=== PATIENT | female | born 1945 | race Caucasian/White ===

== ENCOUNTER 2017-10-17 13:35 | Inpatient (IN) | payer MEDICARE ==
[2017-10-17 14:40] LABS: #Basophils 0.1 thou/uL (0.0-0.2); #Eosinphils 0.1 thou/uL (0.0-0.7); #Lymphocytes 1.1 thou/uL (1.20-3.40); #Monocytes 0.8 thou/uL (0.11-0.59); %Basophils 0.8 % (0.0-1.0); %Eosinophils 0.6 % (0.0-10.0); %Lymphocytes 11.2 % (21.0-51.0); %Monocytes 7.7 % (0.0-10.0); %Neutrophils 79.7 % (42.0-75.0); Hemoglobin 13.7 g/dL (12.0-16.0); Mean Corpuscular HGB CONC 32.3 g/dL (32.0-36.0); Mean Corpuscular Hemoglobin 27.7 pg (27.0-31.0); Mean Corpuscular Volume 85.8 fl (81.0-99.0); Platelet Count 327 thou/uL (130-400); RBC Distribution Width 13.6 % (11.5-14.5); Red Blood Cell (RBC) Count 4.94 mill/uL (4.20-5.40)
[2017-10-17 15:02] LABS: ALT (SGPT) 14 U/L (8-55); AST (SGOT) 26 U/L (5-34); Albumin 4.3 g/dL (3.4-4.8); Alkaline Phosphatase 64 U/L (40-150); Anion Gap 17 mmol/L (10-20); BUN (Urea Nitrogen) 26 mg/dL (9.8-20.1); Bilirubin, Total 0.8 mg/dL (0.2-1.2); CK (CPK) 199 U/L (29-168); Calc. Creatinine Clearance 0 mL/min (70-130); Calcium 9.9 mg/dL (7.8-10.44); Carbon Dioxide 22 mmol/L (23-31); Chloride 100 mmol/L (98-107); Estimated GFR-MDRD 62; Globulin 3.2 g/dL (2.4-3.5); Glucose 95 mg/dL (83-110); Potassium 4.2 mmol/L (3.5-5.1); Protein, Total 7.5 g/dL (6.0-8.3); Sodium 135 mmol/L (136-145)
[2017-10-17 15:05] LABS: CKMB 3.5 ng/mL (0-6.6); Troponin I Less than 0.010 ng/mL (< 0.028)
--- NOTE | 2017-10-17 15:47 | CT ---
CT BRAIN WITHOUT CONTRAST 10/17/17 COMPARISON: 10/15/17 HISTORY: Head trauma. TECHNIQUE: Multiple contiguous axial images are obtained in a CT of the brain without contrast. FINDINGS: There is scattered hypodensities in the subcortical and periventricular white matter likely secondary to small vessel ischemic disease. There is stable prominence of the lateral ventricles which may be secondary to atrophy. Mild hydrocephalus is also a possibility. There is no evidence of intracranial hemorrhage or extra-axial fluid collection. The calvarium and overlying soft tissues are unremarkable. The visualized paranasal sinuses and masto id air cells are well aerated. IMPRESSION: 1. No evidence of acute intracranial abnormality. 2. Small vessel ischemic disease. 3. Prominence of the lateral ventricles may be secondary to cerebral atrophy versus mild hydroce phalus. POS: [facility]
--- NOTE | 2017-10-17 15:50 | RAD ---
TWO VIEWS OF THE LEFT TIBIA/FIBULA: COMPARISON: None. HISTORY: Left leg numbness. The patient fell on 10/15 and went to the ER where she was diagnosed with a left d istal tibia fracture. FINDINGS: Two views of the left tibia/fibula show no evidence of acute fracture or dislocation. No degenerativ e changes are seen. No focal soft tissue swelling is present. IMPRESSION: Unremarkable exam. POS: [facility]
--- NOTE | 2017-10-17 15:51 | CT ---
CT CERVICAL SPINE WITHOUT CONTRAST 10/17/17 COMPARISON: None. HISTORY: Trauma with neck pain. TECHNIQUE: Multiple contiguous axial images were obtained in a CT of the cervical spine without contrast. Sagitt al and coronal reformats were performed. FINDINGS: There are moderate degenerative changes of the cervical spine. The vertebral bodies demonstrate shae l height without acute fracture or subluxation. No prevertebral soft tissue swelling is seen. The posterior facets are well aligned. Normal alignment of the skull base with the cervical spine is seen. There is scarring in the right lung apex. Calcifications are seen in the carotid arteries. IMPRESSION: No evidence of acute osseous abnormality of the cervical spine. POS: [facility]
--- NOTE | 2017-10-17 15:56 | CT ---
CT OF THE LUMBAR SPINE WITHOUT CONTRAST 10/17/17 COMPARISON: None. HISTORY: Trauma with low back pain. TECHNIQUE: Multiple contiguous axial images were obtained in a CT of the lumbar spine without contrast. Sagittal and coronal reformats were performed. FINDINGS: There is severe degenerative changes in the lumbar spine. There is scoliotic curvature of the spine. Bulky osteophytes are seen along the right lateral aspect of the vertebral bodies in the upper lumbar spine and along the left aspect of the vertebral bodies in the lower lumbar spine. This is along the concave aspect of the scoliotic curvature. The vertebral bodies demonstrate normal height without ac [facility] height loss or subluxation. Atherosclerotic calcifications are seen in the aorta. A cyst is seen in the left kidney. The other pr evertebral and paraspinal soft tissues are unremarkable. There is no bony narrowing of the central ca nal. There is moderate to severe right neural foraminal stenosis in the upper lumbar spine at L1-2 an d L2-3 and moderate left neural foraminal stenosis at L3-4, L4-5, and L5-S1. IMPRESSION: Degenerative changes of the lumbar spine as above without acute osseous abnormality. POS: [facility]
[2017-10-17] MEDS ORDERED: ISOVUE-370 76%-LOCM 1 ML ONE (16:56)
--- NOTE | 2017-10-17 17:03 | CT ---
CT ANGIO ABDOMEN AND PELVIS AND BILATERAL LOWER EXTREMITIES WITH CONTRAST: 10/17/17 Multiple axial tomograms obtained through the abdomen and pelvis and lower extremities with arterial phase enhancement with multiplanar reconstruction and 3D postprocessing with angio protocol. HISTORY: Decreased peripheral pulses on the left. Left leg is cold to touch with numbness and pain. FINDINGS: The abdominal aorta shows mild atherosclerotic change. No aneurysmal dilatation. No dissection. No ev idence of stenosis identified at the origin of the major aortic branches including celiac, superior m esenteric, and renal arteries. Aortic bifurcation is patent. The abdominal aorta is mildly tortuous. Common iliac arteries are unrem arkable. LEFT LOWER EXTREMITY: The internal and external iliacs are unremarkable. Left common femoral is unremarkable. Femoral profunda is unremarkable. Left superficial femoral is unremarkable. Left popliteal is patent proximally; however, the distal popliteal is not opacified. There is no opac ified vessels below the knee on the left indicating occlusion of the distal left popliteal artery. RIGHT LOWER EXTREMITY: The right internal and external iliacs are unremarkable. Right common femoral and profunda femoral are unremarkable. Right superficial femoral is unremarkable. Right popliteal unremarkable. The popliteal trifurcates below the knee and three vessels are seen to the distal calf. Vessels are not seen at the ankle. However, this may be due to CT images overrunning the bolus. SOFT TISSUES: There is a fixed diaphragmatic hernia. Liver, spleen and pancreas are unremarkable. Kidneys unremarka ble. There is a cyst in the posterior left renal cortex which measures up to 3.4 cm. Bowel loops appe ar unremarkable. IMPRESSION: No contrast is seen distal to the left popliteal artery. Findings would indicate occlusion of the dis babak left popliteal artery. POS: [facility]
[2017-10-17] MEDS ORDERED: Heparin 5,000 UNITS/ML VIAL ONE (17:13)
[2017-10-17 17:30] LABS: PTT 25.6 SEC (22.9-36.1); Prothrombin Time 13.6 SEC (12.0-14.7)
[2017-10-17] MEDS ORDERED: traMADol HCl 50 MG TAB PO PRN (18:18)
[2017-10-17] MEDS ORDERED: Heparin 25,000 units/D5W 500 ML IVPB SCH (21:13)
[2017-10-17] MEDS ORDERED: Ondansetron ODT 4 MG TAB PO PRN (21:13)
[2017-10-17] MEDS ORDERED: hydrALAZINE 20 MG/ML VIAL SLOW IVP PRN (21:13)
[2017-10-17] MEDS ORDERED: Milk Of Magnesia 30 ML UDCUP PO PRN (21:13)
[2017-10-17] MEDS ORDERED: Heparin 10,000 UNITS/ 10 ML VIAL SLOW IVP SCH (21:13)
[2017-10-17] MEDS ORDERED: Mag-Al 1200 mg/1200 mg/30 ML UDCUP PO PRN (21:13)
[2017-10-17] MEDS ORDERED: Aspirin 81 mg Enteric Coated Tablet PO SCH (21:30)
[2017-10-17] MEDS ORDERED: Sodium Chloride 0.9% 1,000 ML IV SCH (21:30)
[2017-10-17 21:34] LABS: Hemoglobin 12.8 g/dL (12.0-16.0); Platelet Count 301 thou/uL (130-400)
--- NOTE | 2017-10-17 21:34 | HP ---
HISTORY OF PRESENT ILLNESS: This is a 72-year-old lady with a history of hypertension. She fell 2 d ays ago, was seen in the [place] [facility]. At that time, she reported pain in her ankle a nd foot and was unable to bear weight. She was felt perhaps have a fracture at the ankle level. She also was noted to have an anterior maxillary wall fracture. She was sent home. She developed a dec reased sensation in her left lower extremity below the knee, particularly at about the ankle and foot level. She was then unable to move her toes. This all occurred within a few hours of arriving back home. She was transported back up here today where workup included lumbar spine CT brain scan, tibi a, fibula x-ray. She ultimately underwent an aortogram with CTA demonstrating an occlusion of her le ft popliteal artery with no flow seen distally. There was no significant edema in that leg. PAST MEDICAL HISTORY: Includes hypertension. PAST SURGICAL HISTORY: Hysterectomy. SOCIAL HISTORY: Nonsmoker, , remains active, taking care of some cats. She does not walk or exercise. PHYSICAL EXAMINATION: GENERAL: She is an alert, cooperative lady in no distress with a bruise under her left eye. Pupils are equal, round, reactive to light and motion. NECK: She has no carotid bruits. LUNGS: Clear to auscultation. CARDIAC: Exam reveals a regular rhythm with no murmurs. ABDOMEN: Soft and nontender. EXTREMITIES: She has palpable femoral, popliteal, and posterior tibial pulses bilaterally as well as weak dorsalis pedis pulses bilaterally. She has excellent Doppler signals in all 4 of her pedal ves sels. Her left foot is pink, but she does have a foot drop. Her anterior compartment is soft and no ntender. She does have some slight ecchymosis along the tibia and the anterior compartment, but once again, it is nontender and soft. She has a good Doppler signal in her left popliteal artery. At this time, it appears that the patient may have had an embolic event 2 days ago with sudden loss o f function in her left lower extremity leading to a fall. X-rays done at that time, possible ankle f racture and maxillary sinus fracture. Subsequently, the patient has noticed an occasional nosebleed. The patient has had marked improvement in her circulation to her foot and evidently has had a palpa ble pulse today while in the emergency room the entire time. At this point, I do not see any benefit to taking her to surgery to remove the thrombus as her circulation is quite good. Her foot drop is permanent due to the long duration of ischemia prior to improvement in her circulation. I have given her 5000 units of heparin in the emergency room. Her sensation is intact throughout at this time. PLAN: IV heparin, cardiac echo. I will ask Orthopedics to see her in regards to her possible ankle fracture on x-rays done in [place]. Likely these will need to be repeated. I will also monitor her for atrial fibrillation.
[2017-10-17] MEDS: Heparin 25,000 units/D5W 500 ML IV SCH (22:20)
[2017-10-17] MEDS: Heparin 10,000 UNITS/ 10 ML VIAL SLOW IVP SCH (22:20)
[2017-10-17] MEDS: Famotidine 20 MG TAB PO SCH (22:27)
[2017-10-17] MEDS: Docusate 100 MG CAP PO SCH ×2 (22:58→23:20)
[2017-10-17 23:02] VITALS: BMI 24.5
[2017-10-18 05:27] LABS: #Basophils 0.1 thou/uL (0.0-0.2); #Eosinphils 0.1 thou/uL (0.0-0.7); #Lymphocytes 1.6 thou/uL (1.20-3.40); #Monocytes 0.7 thou/uL (0.11-0.59); #Neutrophils 5.9 thou/uL (1.40-6.50); %Basophils 0.8 % (0.0-1.0); %Eosinophils 1.7 % (0.0-10.0); %Monocytes 8.3 % (0.0-10.0); %Neutrophils 70.2 % (42.0-75.0); Hemoglobin 12.1 g/dL (12.0-16.0); Mean Corpuscular Hemoglobin 27.4 pg (27.0-31.0); Mean Corpuscular Volume 85.7 fl (81.0-99.0); Mean Platelet Volume 7.5 fL (7.4-10.4); Platelet Count 297 thou/uL (130-400); RBC Distribution Width 13.6 % (11.5-14.5); Red Blood Cell (RBC) Count 4.43 mill/uL (4.20-5.40); White Blood Cell (WBC) Count 8.4 thou/uL (4.8-10.8)
[2017-10-18 05:37] LABS: Anion Gap 15 mmol/L (10-20); BUN (Urea Nitrogen) 27 mg/dL (9.8-20.1); Calc. Creatinine Clearance 59 mL/min (70-130); Calcium 9.6 mg/dL (7.8-10.44); Carbon Dioxide 22 mmol/L (23-31); Chloride 103 mmol/L (98-107); Estimated GFR-MDRD 67; Glucose 89 mg/dL (83-110); Sodium 137 mmol/L (136-145)
[2017-10-18] MEDS ORDERED: Clopidogrel Bisulfate 75 MG TAB ONE (07:31)
[2017-10-18] MEDS: Docusate 100 MG CAP PO SCH ×2 (08:22→21:11)
[2017-10-18] MEDS: Famotidine 20 MG TAB PO SCH ×2 (08:22→21:11)
[2017-10-18] MEDS ORDERED: Lisinopril/Hydrochlorothiazide 10 mg/12.5 mg Tablet PO SCH (09:00)
[2017-10-18] MEDS ORDERED: FLU VACC TS2017-18 (>65YR) 0.5 ML SYRINGE IM ONE (09:00)
[2017-10-18] MEDS ORDERED: Prevnar 13-Val Conj/PF 0.5 ML SYRINGE IM ONE (09:00)
--- NOTE | 2017-10-18 09:41 | CON ---
DATE OF CONSULTATION: 10/18/2017 HISTORY OF PRESENT ILLNESS: We were asked to see patient by the Emergency Room and Dr. Cavazos. The sukumar salguero was seen in [place] for a fall on the and told she had an ankle fracture and a facia l fracture. Her history is that her both feet became and had been on and off numb and tingly and for the past week or so has had this unexplained left foot drop. It sounds like patient was put in a sp lint at [place] and sent home. She tried to walk on this splint and fell again. She was re-see n in the ER and sent to our facility for further care. Dr. Cavazos is evaluating her for vascular issu es and was seeing her for her foot. The patient states prior 2 weeks ago, she was in good health, in no acute distress, taking care of her cats and then her foot started getting weak. She denies any b ack pain, any history of mental status changes that she recalls. No family is in the room with her a t this time. Currently, she has some decreased sensation in left lower extremity with an obvious luz t drop, just viewing the foot. PAST MEDICAL HISTORY: Positive for hypertension. PAST SURGICAL HISTORY: Hysterectomy. SOCIAL HISTORY: , nonsmoker. CURRENT MEDICATIONS: Lisinopril. ALLERGIES: Denies any. CURRENT REVIEW OF SYSTEMS: I think she is complaining of her left lower extremity and inability to w alk. Otherwise, rest of review of systems is negative. PHYSICAL EXAMINATION: GENERAL: Well-nourished female, resting in bed, in no acute distress. Speech clear. Affect pleasan t. Answers questions appropriately, she is alert and oriented x3. HEENT: There is a bruise to her left inferior orbit, it is a little tender, but eyes are tracking we ll. Face is symmetric. NECK: Supple. EXTREMITES: Upper extremity is moving well. She does have some bruising seen on both upper extremit ies, but she has equal size, shape, symmetry, normal bulk and tone in lower extremities. Right lower extremity, normal exam. No brisk reflexes found in upper or lower extremities. No clonus seen to t he feet. Palpation of DP, PT pulses, they are equal. Both feet have good warmth. Movement of the r ight lower extremity is absolutely normal. Left lower extremity, the patient is unable to dorsiflex, move her EHL and she is not able to extend her knee, but I can lock her leg in place and she has got good quad strength. Gait not tested. ASSESSMENT: Left foot drop, x-rays from [place] for concerns of her fracture, we did look at ti b/fib films and did not see any fractures on visualization. We will get a new 3 view, which I have e xplained to the patient and reviewed the images further. I am also going to order a walking boot and physical therapy for patient, this way we can lock her foot in place as she has got good upper leg s trength, but the inferior leg is a little bit weak and hopefully we can get her back to some mobility status. Further workup will be done by Dr. Cavazso. Once x-rays done, we will discuss these results with the patient also. This is Carlin Garvey PA-C dictating for Dr. John Caro.
--- NOTE | 2017-10-18 10:32 | RAD ---
THREE VIEWS OF THE LEFT ANKLE: COMPARISON: 10/15/17. HISTORY: Left foot pain with foot drop. FINDINGS: Three views left foot show no evidence of acute fracture or dislocation. No focal soft tissue swelli ng is seen. No degenerative changes are present. IMPRESSION: No evidence of acute osseous abnormality. POS: [facility]
[2017-10-18] MEDS: Potassium Chloride 20 MEQ TAB PO SCH (17:02)
[2017-10-18] MEDS: Sodium Chloride 0.9% 1,000 ML IV SCH ×2 (18:31→22:48)
[2017-10-18] MEDS: Acetaminophen 325 MG TAB PO PRN (21:10)
[2017-10-19] MEDS: Heparin 25,000 units/D5W 500 ML IV SCH (04:00)
[2017-10-19 05:43] LABS: Anion Gap 13 mmol/L (10-20); BUN (Urea Nitrogen) 16 mg/dL (9.8-20.1); Calc. Creatinine Clearance 66 mL/min (70-130); Calcium 8.8 mg/dL (7.8-10.44); Carbon Dioxide 23 mmol/L (23-31); Chloride 105 mmol/L (98-107); Estimated GFR-MDRD 76; Glucose 90 mg/dL (83-110); Potassium 3.3 mmol/L (3.5-5.1); Sodium 138 mmol/L (136-145)
[2017-10-19] MEDS: Heparin 10,000 UNITS/ 10 ML VIAL SLOW IVP SCH (06:36)
[2017-10-19] MEDS: Docusate 100 MG CAP PO SCH ×2 (09:42→20:27)
[2017-10-19] MEDS: Lisinopril/Hydrochlorothiazide 20 mg/12.5 mg Tablet PO SCH (11:13)
[2017-10-19] MEDS: Potassium Chloride 20 MEQ TAB PO SCH ×2 (11:14→17:44)
[2017-10-19] MEDS: Famotidine 20 MG TAB PO SCH ×2 (11:14→20:27)
[2017-10-19] MEDS: Sodium Chloride 0.9% 1,000 ML IV SCH (11:17)
[2017-10-19] MEDS ORDERED: Diprivan 20 ML ONE (14:04)
[2017-10-19] MEDS ORDERED: Lidocaine 1% PF 5 ML VIAL ONE (15:53)
[2017-10-19] MEDS ORDERED: Propofol 200 MG/20 ML VIAL ONE (15:53)
--- NOTE | 2017-10-19 17:07 | CON ---
CARDIOLOGY CONSULTATION NOTE DATE OF CONSULTATION: 10/19/2017 REASON FOR CONSULTATION: Possible embolic event. HISTORY OF PRESENT ILLNESS: Ms. Flynn is a pleasant 72-year-old white female who comes to the [facility] for foot drop and leg pain. This is after a fall 2 days ago. She was evaluated with a CT morales o and was found to have possible occlusion of the popliteal artery. She was admitted to the hospital with Dr. Cavazos. He is concerned that she may have a shunt in her heart or some source of embolism, so he is requesting a transesophageal echo. PAST MEDICAL HISTORY: Hypertension. PAST SURGICAL HISTORY: Hysterectomy. SOCIAL HISTORY: No alcohol, tobacco or drugs. OUTPATIENT MEDICATIONS: Include lisinopril/HCTZ 20/25 daily. ALLERGIES: No known drug allergies. REVIEW OF SYSTEMS: A 12-point review of systems was done and is all negative unless stated in the hi story of present illness. PHYSICAL EXAMINATION: VITAL SIGNS: Temperature 97.7, pulse 79, respiratory rate 15, satting 96% on room and blood pressure 172/80. GENERAL: Awake, alert and oriented x3, in no distress. HEENT: Normocephalic and atraumatic. NECK: Supple. LUNGS: Clear. CARDIOVASCULAR: S1, S2. No S3, S4. No murmurs, no rubs. ABDOMEN: Soft. Positive bowel sounds. EXTREMITIES: No edema. SKIN: Warm and dry. LABORATORY DATA: Laboratory work was reviewed. CBC, CMP and coags were reviewed. Potassium is low at 3.3. Troponins are negative x1 and albumin of 4.3. IMAGING DATA: EKG is reviewed, sinus rhythm. Telemetry was reviewed, sinus rhythm. Transthoracic echo was reviewed and cannot rule out a thrombus in the left atrial appendage, but poss ibly just a lipomatous hypertrophy of the interatrial septum. ASSESSMENT: Possible lower extremity thromboembolic event. PLAN: Proceed with transesophageal echo to make sure there are no intracardiac shunts versus the basilia rce of an embolic event in her left atrial appendage. We have spoken in length of the risks and bene fits of the procedure, she agrees to proceed. Further recommendations per results of KASIE.
--- NOTE | 2017-10-19 19:44 | ECHO ---
DATE OF PROCEDURE: 10/19/2017 PREPROCEDURE DIAGNOSIS: Thromboembolic event. PROCEDURE PERFORMED: Transesophageal echo. SUMMARY: The Anesthesiology Department provided sedation for the patient, please see their notes for details. After adequate sedation was achieved, the transesophageal probe was inserted into the mouth and into the esophagus without problems. Multiplanar views were then obtained. Left ventricle is normal size with normal wall thickness and systolic function is normal, EF estimate d at 55-60%. Left atrium is normal size. Left atrial appendage is large, with no masses or thrombus, normal veloc ities. Right atrium is normal size. No mass or thrombus. Interatrial septum is intact by color Doppler and by agitated saline study. Right ventricle is normal size and normal RV systolic function. The aortic root is normal size. No aneurysmal dilatations or dissections. Aortic valve is structurally normal, three cusps, no stenosis or regurgitation. Mitral valve structurally normal. There is mild MR, no stenosis. Tricuspid valve structurally normal. There is mild to moderate TR. Pulmonary valve is structurally normal. No significant stenosis or regurgitation. ASSESSMENT AND PLAN: Thoracic ascending aorta shows no evidence of significant atherosclerotic disea se. The distal part of the aortic arch shows no significant atherosclerotic disease. CONCLUSIONS: 1. Normal systolic function with EF of 55-60%. 2. Intact interatrial septum with lipomatous hypertrophy. 3. No thrombus in any of the major cardiac chambers. 4. No significant atherosclerotic disease on the distal aortic arch and the thoracic descending aort a. 5. Mild MR. 6. [id number] TR. POS: [facility]
[2017-10-19] MEDS: Acetaminophen 325 MG TAB PO PRN (20:27)
[2017-10-19 21:24] LABS: Hemoglobin 11.3 g/dL (12.0-16.0); Platelet Count 261 thou/uL (130-400)
[2017-10-20] MEDS: Lisinopril/Hydrochlorothiazide 20 mg/12.5 mg Tablet PO SCH (08:33)
[2017-10-20] MEDS: Famotidine 20 MG TAB PO SCH ×2 (08:33→20:53)
[2017-10-20] MEDS: Docusate 100 MG CAP PO SCH ×2 (08:34→20:52)
[2017-10-20] MEDS: Acetaminophen 325 MG TAB PO PRN (20:54)
[2017-10-21] MEDS: Famotidine 20 MG TAB PO SCH ×2 (08:17→20:14)
[2017-10-21] MEDS: Potassium Chloride 10 MEQ TAB PO SCH (08:17)
[2017-10-21] MEDS: Enoxaparin Sodium 30 MG/0.3 ML SYRINGE SC SCH (08:17)
[2017-10-21] MEDS: Lisinopril/Hydrochlorothiazide 20 mg/12.5 mg Tablet PO SCH (08:17)
[2017-10-21] MEDS: Docusate 100 MG CAP PO SCH ×2 (08:17→20:14)
[2017-10-21] MEDS: Acetaminophen 325 MG TAB PO PRN (12:25)
[2017-10-22] MEDS: Lisinopril/Hydrochlorothiazide 20 mg/12.5 mg Tablet PO SCH (09:25)
[2017-10-22] MEDS: Potassium Chloride 10 MEQ TAB PO SCH (09:26)
[2017-10-22] MEDS: Famotidine 20 MG TAB PO SCH (09:26)
[2017-10-22] MEDS: Docusate 100 MG CAP PO SCH (09:26)
[2017-10-22] MEDS: Enoxaparin Sodium 30 MG/0.3 ML SYRINGE SC SCH (09:32)
[2017-10-22 18:00] VITALS: BP 132/74; TEMP 97
--- NOTE | 2017-10-22 23:02 | DIS ---
HOSPITAL COURSE: This is a 72-year-old lady with early signs of dementia who presented to the emerge ncy room with some left leg numbness, weakness, and foot drop. She was evaluated with lumbar and cer vical spine CTs, a brain scan and aortogram with runoff. The runoff was suspicious for a left poplit eal artery occlusion with no flow distally. On examination, however, she had good pulses in her foot as well as excellent Doppler signal suggesting that the CT scan may have been slow flow and it just did not have time to fill that. In any event, she underwent evaluation for possible embolic source i ncluding a transthoracic and transesophageal echo in continuous monitoring on telemetry for arrhythmi as which did not occur. Her KASIE was normal. The plan was to send her to a halfway unit or r ehab to regain her lower extremity strength. She was seen in consultation by orthopedics for foot dr op and they recommended a boot to assist with ambulation. She made little progress in the hospital a nd ultimately was unable to be transferred to another unit because of insurance issues. She will be discharged home to resume her lisinopril/HCTZ as well as continue an aspirin a day. She may consider outpatient physical therapy or home health.
== END 2017-10-22 18:00 | disposition home or self-care (01) | DRG 301 ==
LOC: ERS 13:35 → 2NO 18:04
PROVIDERS: ADMIT Thoracic Surgery (Cardiothoracic Vascular Surgery); ATTEND Thoracic Surgery (Cardiothoracic Vascular Surgery)
PROC: B24BZZ4 Ultrasonography of Heart with Aorta, Transesophageal (ICD-10-PCS; principal; 2017-10-19)
DX: I70.292 Other atherosclerosis of native arteries of extremities, left leg (principal); F03.90 Unspecified dementia, unspecified severity, without behavioral disturbance, psychotic disturbance, mood disturbance, and anxiety; I08.1 Rheumatic disorders of both mitral and tricuspid valves; I45.10 Unspecified right bundle-branch block; M25.572 Pain in left ankle and joints of left foot; I10 Essential (primary) hypertension; M21.372 Foot drop, left foot; W18.30XA Fall on same level, unspecified, initial encounter
CPT/HCPCS: 36415; 70450; 72125; 72131; 75635; 80048; 80053; 82553; 83605; 84484; 85014; 85018; 85025; 85049; 85610; 85730; 90471; 90670; 90682; 93005; 93306; 93312; 96374; G0008; G0009; G8978-GP-CM; G8979-GP-CK; G8987-GO-CL; G8988-GO-CJ; J1644; J1650; J2001; J2704; Q2036

== ENCOUNTER 2022-05-20 17:22 | Inpatient (IN) | payer MEDICARE ==
[~2022-05-20 17:22] MED LIST: Iopamidol-370 76% 500 ML 1 ML ONE
[2022-05-20 17:59] LABS: Bacteria/HPF 4+ HPF (None Seen); Bilirubin Negative (Negative); Blood, Urine 3+ (Negative); Clarity Extra Turbid (Clear); Glucose, Urine (Dipstick) Normal (Negative); Ketone, Urine Trace mg/dL (Negative); Leukocyte 500 Leu/uL (Negative); Nitrite Negative (Negative); Protein, Urine (Dipstick) 70 mg/dL (Neg-Trace); Specific Gravity, Urine 1.008 (1.002-1.036); Squamous Epithelial 0-3 HPF (0-3); Urobilinogen Normal mg/dL (Less than 2); WBC/HPF Greater than 50 HPF (0-3); pH, Urine 6.5 (5.0-9.0)
[2022-05-20 18:08] LABS: Mean Corpuscular HGB CONC 32.9 g/dL (32.0-36.0); Mean Corpuscular Hemoglobin 28.8 pg (27.0-31.0); Mean Corpuscular Volume 87.5 fL (78.0-98.0); Mean Platelet Volume 6.3 fL (7.4-10.4); Platelet Count 273 thou/uL (130-400); RBC Distribution Width 12.3 % (11.5-14.5); Red Blood Cell (RBC) Count 3.83 mill/uL (4.20-5.40); White Blood Cell (WBC) Count 20.9 thou/uL (4.8-10.8)
[2022-05-20 18:20] LABS: Band 10 % (5-11); Lymphocytes 1 % (21-51); MDiff Complete? YES; Monocytes 4 % (0-10); Neutrophil 84 % (42-75); Platelet Morphology Comment Appears Adequate; Polychromasia SLIGHT = 2-3 cells (100X) (0-2/hpf)
[2022-05-20] MEDS ORDERED: cefTRIAXone\\ROCEPHIN 1 GM VIAL ONE (18:33)
[2022-05-20 18:43] LABS: ALT (SGPT) 18 U/L (8-55); AST (SGOT) 25 U/L (5-34); Albumin 3.3 g/dL (3.4-4.8); Alkaline Phosphatase 89 U/L (40-110); Anion Gap 13 mmol/L (10-20); BUN (Urea Nitrogen) 13 mg/dL (9.8-20.1); Bilirubin, Total 0.8 mg/dL (0.2-1.2); Calc. Creatinine Clearance 0 mL/min (70-130); Calcium 8.2 mg/dL (7.8-10.44); Carbon Dioxide 18 mmol/L (23-31); Chloride 105 mmol/L (98-107); Estimated GFR 71; Globulin 2.8 g/dL (2.4-3.5); Glucose 125 mg/dL (83-110); Protein, Total 6.1 g/dL (5.8-8.1); Sodium 133 mmol/L (136-145)
[2022-05-20] MEDS ORDERED: Acetaminophen 650 MG Suppository ONE (19:18)
[2022-05-20 19:23] LABS: CKMB 1.1 ng/mL (0-6.6)
[2022-05-20] MEDS ORDERED: Vancomycin 1 GM/200 ML BAG ONE (19:40)
[2022-05-20] MEDS ORDERED: Potassium Chloride 40 MEQ in Premix Bag 1 BAG IVPB SCH (19:45)
[2022-05-20 20:00] LABS: Actual Bicarbonate (HCO3a) 12.9 mEq/L (22-28); Analyzer IN Cardio ER; Base Excess (BEa) -8.9 mEq/L (-2.0 to +3.0); Calcium, Ionized (arterial) 1.12 mmol/L (1.12-1.30); Carboxyhemoglobin (COHb) 0.3 gm% (0.0-3.0); Hemoglobin (Hb) 12.3 g/dL (12.0-16.0); O2 Tension (PaO2), arterial 149.6 mmHg (> 70.0); Potassium - ABG Lab 2.89 mmol/L (3.70-5.30); pH, Arterial 7.44 (7.35-7.45)
[2022-05-20 20:02] LABS: CO2 Tension 19.4 mmHg (35.0-45.0)
[2022-05-20 20:03] LABS: Puncture Site RBA
[2022-05-20 20:25] LABS: Magnesium 1.6 mg/dL (1.6-2.6)
[2022-05-20] MEDS ORDERED: Acetaminophen 325 MG Suppository PR SCH (21:00)
[2022-05-20] MEDS: Potassium Chloride 20 MEQ in Premix Bag 1 BAG IVPB SCH (21:10)
[2022-05-20 21:37] LABS: Troponin I 0.942 ng/mL (< 0.028)
[2022-05-20 22:00] LABS: SARS-CoV-2 NAA Rapid Test Not Detected (NotDetected)
[2022-05-20] MEDS ORDERED: Magnesium 2 GM/50 ML(in water) 2 GM in Premix Bag 1 BAG IVPB SCH (22:30)
[2022-05-20] MEDS ORDERED: Piperacillin/Tazobactam 3.375 GM in Sodium Chloride 0.9% 100 ML IVPB SCH (23:59)
[2022-05-21] MEDS: Potassium Chloride 20 MEQ in Premix Bag 1 BAG IVPB SCH (00:18)
[2022-05-21 01:18] LABS: Troponin I 1.347 ng/mL (< 0.028)
[2022-05-21 04:19] LABS: Anion Gap 17 mmol/L (10-20); BUN (Urea Nitrogen) 14 mg/dL (9.8-20.1); Calc. Creatinine Clearance 51 mL/min (70-130); Calcium 8.6 mg/dL (7.8-10.44); Carbon Dioxide 16 mmol/L (23-31); Chloride 106 mmol/L (98-107); Estimated GFR 58; Glucose 147 mg/dL (83-110); Magnesium 2.3 mg/dL (1.6-2.6); Potassium 3.8 mmol/L (3.5-5.1); Sodium 135 mmol/L (136-145)
[2022-05-21 04:49] LABS: Critical Call Chem Troponin I RESULT DECREASING; Troponin I 0.914 ng/mL (< 0.028)
[2022-05-21] MEDS: Piperacillin/Tazobactam 3.375 GM in Sodium Chloride 0.9% 100 ML IVPB SCH ×3 (04:57→20:22)
[2022-05-21 05:03] LABS: Band 9 % (5-11); Hemoglobin 12.1 g/dL (12.0-16.0); Lymphocytes 4 % (21-51); MDiff Complete? YES; Mean Corpuscular HGB CONC 32.6 g/dL (32.0-36.0); Mean Corpuscular Hemoglobin 28.9 pg (27.0-31.0); Mean Corpuscular Volume 88.6 fL (78.0-98.0); Mean Platelet Volume 8.2 fL (7.4-10.4); Monocytes 3 % (0-10); Neutrophil 84 % (42-75); Platelet Count 205 thou/uL (130-400); Platelet Morphology Comment Appears Adequate; RBC Distribution Width 12.6 % (11.5-14.5); RBC Morphology Normal; Red Blood Cell (RBC) Count 4.19 mill/uL (4.20-5.40); White Blood Cell (WBC) Count 26.1 thou/uL (4.8-10.8)
[2022-05-21] MEDS: Enoxaparin Sodium 40 MG/0.4 ML SYRINGE SC SCH (08:48)
[2022-05-21] MEDS ORDERED: Electrolyte Replacement Protocol 1 EACH FS SCH (09:15)
[2022-05-21] MEDS ORDERED: Aspirin 325 MG TAB PO SCH (09:15)
[2022-05-21] MEDS ORDERED: Electrolyte Replacement Protocol FS PRN (09:30)
[2022-05-21 11:10] LABS: Phosphorus 2.6 mg/dL (2.3-4.7)
[2022-05-21] MEDS: Multivitamins, Adult 10 ML in D5 1/2 NS w/20 mEq KCL 1,000 ML IV SCH (11:12)
[2022-05-21] MEDS ORDERED: Nitroglycerin 0.4 MG TAB (25 Tab Bottle) SL PRN (14:13)
[2022-05-21 14:34] VITALS: BMI 27.4
[2022-05-21] MEDS: Acetaminophen 325 MG TAB PO PRN (20:21)
[2022-05-21] MEDS: Senokot S 8.6-50 MG TAB PO SCH (20:21)
[2022-05-21] MEDS: Polyethylene Glycol 3350 17 GM Packet PO SCH (20:22)
[2022-05-22] MEDS: Piperacillin/Tazobactam 3.375 GM in Sodium Chloride 0.9% 100 ML IVPB SCH ×2 (03:36→12:36)
[2022-05-22 04:26] LABS: Phosphorus 2.1 mg/dL (2.3-4.7)
[2022-05-22 04:28] LABS: #Eosinphils 0.2 thou/uL (0.0-0.7); #Lymphocytes 1.1 thou/uL (1.20-3.40); #Monocytes 1.1 thou/uL (0.11-0.59); #Neutrophils 16.8 thou/uL (1.40-6.50); %Basophils 0.1 % (0.0-1.0); %Eosinophils 0.8 % (0.0-10.0); %Lymphocytes 5.9 % (21.0-51.0); %Monocytes 5.8 % (0.0-10.0); %Neutrophils 87.3 % (42.0-75.0); Mean Corpuscular HGB CONC 33.1 g/dL (32.0-36.0); Mean Corpuscular Hemoglobin 29.2 pg (27.0-31.0); Mean Corpuscular Volume 88.1 fL (78.0-98.0); Mean Platelet Volume 6.9 fL (7.4-10.4); Platelet Count 272 thou/uL (130-400); RBC Distribution Width 12.3 % (11.5-14.5); Red Blood Cell (RBC) Count 3.43 mill/uL (4.20-5.40); White Blood Cell (WBC) Count 19.2 thou/uL (4.8-10.8)
[2022-05-22 04:29] LABS: Glucose 112 mg/dL (83-110)
[2022-05-22 04:31] LABS: Anion Gap 10 mmol/L (10-20); BUN (Urea Nitrogen) 15 mg/dL (9.8-20.1); Calc. Creatinine Clearance 55 mL/min (70-130); Calcium 8.6 mg/dL (7.8-10.44); Carbon Dioxide 21 mmol/L (23-31); Chloride 107 mmol/L (98-107); Estimated GFR 63; Potassium 3.3 mmol/L (3.5-5.1); Sodium 135 mmol/L (136-145)
[2022-05-22] MEDS ORDERED: Magnesium 2 GM/50 ML(in water) 2 GM in Premix Bag 1 BAG IVPB SCH (06:00)
[2022-05-22] MEDS: Multivitamins, Adult 10 ML in D5 1/2 NS w/20 mEq KCL 1,000 ML IV SCH (07:10)
[2022-05-22] MEDS ORDERED: Potassium Chloride 20 MEQ TAB PO SCH (08:00)
[2022-05-22] MEDS: Enoxaparin Sodium 40 MG/0.4 ML SYRINGE SC SCH (08:20)
[2022-05-22] MEDS: Senokot S 8.6-50 MG TAB PO SCH ×2 (08:21→20:54)
[2022-05-22] MEDS: Aspirin 81 mg Enteric Coated Tablet PO SCH (08:21)
[2022-05-22] MEDS: Acetaminophen 325 MG TAB PO PRN ×3 (08:22→20:54)
[2022-05-22] MEDS: Ondansetron PF 4 MG/2 ML Vial IVP PRN (12:36)
[2022-05-22] MEDS: Polyethylene Glycol 3350 17 GM Packet PO SCH (20:53)
[2022-05-22] MEDS: cefTRIAXone\\ROCEPHIN 2 GM in Sodium Chloride 0.9% 100 ML IVPB SCH (20:54)
[2022-05-23] MEDS: Acetaminophen 325 MG TAB PO PRN ×4 (03:27→20:43)
[2022-05-23 04:38] LABS: #Eosinphils 0.3 thou/uL (0.0-0.7); #Monocytes 0.9 thou/uL (0.11-0.59); %Basophils 0.3 % (0.0-1.0); %Lymphocytes 9.4 % (21.0-51.0); %Neutrophils 78.3 % (42.0-75.0); Hemoglobin 10.2 g/dL (12.0-16.0); Mean Corpuscular HGB CONC 31.6 g/dL (32.0-36.0); Mean Corpuscular Hemoglobin 28.8 pg (27.0-31.0); Mean Corpuscular Volume 91.2 fL (78.0-98.0); Mean Platelet Volume 6.9 fL (7.4-10.4); Platelet Count 297 thou/uL (130-400); RBC Distribution Width 12.5 % (11.5-14.5); Red Blood Cell (RBC) Count 3.55 mill/uL (4.20-5.40); White Blood Cell (WBC) Count 10.2 thou/uL (4.8-10.8)
[2022-05-23 04:58] LABS: Anion Gap 13 mmol/L (10-20); BUN (Urea Nitrogen) 9 mg/dL (9.8-20.1); Calc. Creatinine Clearance 66 mL/min (70-130); Calcium 8.5 mg/dL (7.8-10.44); Carbon Dioxide 16 mmol/L (23-31); Chloride 109 mmol/L (98-107); Estimated GFR 77; Glucose 95 mg/dL (83-110); Sodium 134 mmol/L (136-145)
[2022-05-23 05:00] LABS: Phosphorus 2.6 mg/dL (2.3-4.7)
[2022-05-23] MEDS ORDERED: Magnesium 2 GM/50 ML(in water) 2 GM in Premix Bag 1 BAG IVPB SCH (08:00)
[2022-05-23] MEDS: Aspirin 81 mg Enteric Coated Tablet PO SCH (10:28)
[2022-05-23] MEDS: Senokot S 8.6-50 MG TAB PO SCH ×2 (10:29→20:43)
[2022-05-23] MEDS: Enoxaparin Sodium 40 MG/0.4 ML SYRINGE SC SCH ×2 (10:31→10:45)
[2022-05-23] MEDS: Ondansetron PF 4 MG/2 ML Vial IVP PRN (15:55)
[2022-05-23] MEDS: cefTRIAXone\\ROCEPHIN 2 GM in Sodium Chloride 0.9% 100 ML IVPB SCH (20:43)
[2022-05-23] MEDS: Polyethylene Glycol 3350 17 GM Packet PO SCH (20:43)
[2022-05-24] MEDS: Senokot S 8.6-50 MG TAB PO SCH ×2 (09:19→20:46)
[2022-05-24] MEDS: Enoxaparin Sodium 40 MG/0.4 ML SYRINGE SC SCH (09:19)
[2022-05-24] MEDS: Aspirin 81 mg Enteric Coated Tablet PO SCH (11:22)
[2022-05-24] MEDS: Ondansetron PF 4 MG/2 ML Vial IVP PRN (18:22)
[2022-05-24] MEDS: cefTRIAXone\\ROCEPHIN 2 GM in Sodium Chloride 0.9% 100 ML IVPB SCH (20:44)
[2022-05-24] MEDS: Polyethylene Glycol 3350 17 GM Packet PO SCH (20:45)
[2022-05-24] MEDS: Acetaminophen 325 MG TAB PO PRN (21:27)
[2022-05-25] MEDS: Acetaminophen 325 MG TAB PO PRN ×2 (05:31→20:56)
[2022-05-25] MEDS: Senokot S 8.6-50 MG TAB PO SCH ×2 (09:31→20:57)
[2022-05-25] MEDS: Aspirin 81 mg Enteric Coated Tablet PO SCH (09:31)
[2022-05-25] MEDS: Enoxaparin Sodium 40 MG/0.4 ML SYRINGE SC SCH (09:31)
[2022-05-25] MEDS: cefTRIAXone\\ROCEPHIN 2 GM in Sodium Chloride 0.9% 100 ML IVPB SCH (20:58)
[2022-05-25] MEDS: Polyethylene Glycol 3350 17 GM Packet PO SCH (20:58)
[2022-05-26] MEDS: Aspirin 81 mg Enteric Coated Tablet PO SCH (09:49)
[2022-05-26] MEDS: Senokot S 8.6-50 MG TAB PO SCH ×2 (09:49→21:14)
[2022-05-26] MEDS: Enoxaparin Sodium 40 MG/0.4 ML SYRINGE SC SCH (09:49)
[2022-05-26 10:26] LABS: Troponin I 0.023 ng/mL (< 0.028)
[2022-05-26] MEDS: Acetaminophen 325 MG TAB PO PRN ×2 (19:18→23:35)
[2022-05-26] MEDS: cefTRIAXone\\ROCEPHIN 2 GM in Sodium Chloride 0.9% 100 ML IVPB SCH (21:14)
[2022-05-26] MEDS: Polyethylene Glycol 3350 17 GM Packet PO SCH (21:15)
[2022-05-27] MEDS: Senokot S 8.6-50 MG TAB PO SCH ×2 (10:15→15:17)
[2022-05-27] MEDS: Acetaminophen 325 MG TAB PO PRN ×2 (10:16→13:46)
[2022-05-27] MEDS: Aspirin 81 mg Enteric Coated Tablet PO SCH (10:16)
[2022-05-27] MEDS: Enoxaparin Sodium 40 MG/0.4 ML SYRINGE SC SCH (10:25)
[2022-05-27] MEDS ORDERED: Ciprofloxacin 500 MG TAB PO SCH ×2 (13:15→21:00)
[2022-05-27 16:16] VITALS: BP 144/88; TEMP 98.1
== END 2022-05-27 16:10 | DRG 871 ==
LOC: ERS 17:22 → IMCU/EMU 19:22 → 2NO 05-22 17:31
PROVIDERS: ADMIT Internal Medicine; ATTEND Internal Medicine
PROC: 5A09357 Assistance with Respiratory Ventilation, Less than 24 Consecutive Hours, Continuous Positive Airway Pressure (ICD-10-PCS; principal; 2022-05-20)
PROC: 3E03329 Introduction of Other Anti-infective into Peripheral Vein, Percutaneous Approach (ICD-10-PCS; 2022-05-20)
DX: A41.51 Sepsis due to Escherichia coli [E. coli] (principal); G93.41 Metabolic encephalopathy; I21.A1 Myocardial infarction type 2; N39.0 Urinary tract infection, site not specified; E87.1 Hypo-osmolality and hyponatremia; R65.20 Severe sepsis without septic shock; I10 Essential (primary) hypertension; Z20.822 Contact with and (suspected) exposure to COVID-19; E87.6 Hypokalemia; J98.4 Other disorders of lung; I45.10 Unspecified right bundle-branch block; E83.42 Hypomagnesemia; Z90.710 Acquired absence of both cervix and uterus; Z79.82 Long term (current) use of aspirin; Z79.899 Other long term (current) drug therapy; Z98.890 Other specified postprocedural states
CPT/HCPCS: 36415; 36600; 71045; 71275; 76770; 80048; 80053; 81003; 81015; 82553; 82805; 83605; 83735; 83880; 84100; 84484; 85025; 87040; 87077; 87086; 87149; 87186; 93005; 93306; 94640; 94660; 94760; 96365; 96367; J0696; J1650; J2405; J2543; J3370; J3475; J3480; J3490; J7030; J7620; Q9967; U0002; U0003; U0005